=== PATIENT | male | born 2000 | race American Indian/Alaskan Native ===

== ENCOUNTER 2022-05-28 01:03 | Emergency (ER) | payer SELFPAY ==
[2022-05-28] MEDS ORDERED: SODIUM CHLORIDE 0.9% 1000 ML 1,000 ML IV ONE (02:05)
[2022-05-28 02:18] LABS: Basophils # (Auto) 0.1 K/mm3 (0.0-0.1); Basophils % (Auto) 0.8 % (0.0-1.8); Eosinophils # (Auto) 0.1 K/mm3 (0.0-0.4); Eosinophils % (Auto) 1.7 % (0.0-4.3); Hematocrit 44.7 % (35.5-45.6); Hemoglobin 14.2 gm/dl (11.8-15.2); Lymphocytes # (Auto) 1.1 K/mm3 (1.2-5.4); Lymphocytes % (Auto) 17.1 % (13.4-35.0); Mean Corpuscular HGB Conc 32 % (32-34); Mean Corpuscular Volume 91 fl (84-94); Monocytes # (Auto) 0.4 K/mm3 (0.0-0.8); Monocytes % (Auto) 5.3 % (0.0-7.3); Platelet Count 268 K/mm3 (140-440); Red Blood Count 4.95 M/mm3 (3.65-5.03); Red Cell Distribution Width 12.4 % (13.2-15.2)
--- NOTE | 2022-05-28 02:52 | XRay Report ---
XR chest 1V ap INDICATION / CLINICAL INFORMATION: Overdose. COMPARISON: None available. FINDINGS: SUPPORT DEVICES: None. HEART /PULMONARY VASCULATURE: No significant abnormality. LUNGS / PLEURA: No significant pulmonary or pleural abnormality. No pneumothorax. ADDITIONAL FINDINGS: No significant additional findings. IMPRESSION: 1. No acute findings. Signer Name: Teddy Gupta MD Signed: 05/28/2022 2:48 AM Workstation Name: [id number]
[2022-05-28 02:58] LABS: Alanine Aminotransferase 14 units/L (7-56); Albumin 4.3 g/dL (3.9-5); BUN/Creatinine Ratio 16; Blood Urea Nitrogen 14 mg/dL (9-20); Calcium 8.9 mg/dL (8.4-10.2); Hemolysis Index 6
[2022-05-28 03:07] LABS: INR 1.14 (0.87-1.13)
--- NOTE | 2022-05-28 03:50 | Emergency Department Report ---
<EDNASANDHYAJEN - Last Filed: 05/28/22 03:49> ED General Adult HPI - General Chief complaint: Overdose Stated complaint: MH PUI?: No Time Seen by Provider: 05/28/22 02:02 Source: EMS Mode of arrival: Stretcher Limitations: No Limitations - History of Present Illness Initial comments: t took ibuprofen 4000 mg, pt only answering questions by "yes" and "no" to EMS on scene EMS reports pt stating "I am going to fight everyone" the original call came in to dispatch at 1904 05/27/22, reason for deplayed transport is EMS was waiting on PD. Pt was not combative. No IV placed en route. Pt is responsive, sluggish, AOx2, -: Gradual, hour(s) (1) Associated Symptoms: denies: denies other symptoms, confusion, chest pain Treatments Prior to Arrival: none - Related Data Allergies Allergy/AdvReac Type Severity Reaction Status Date / Time No Known Allergies Allergy Unverified 05/28/22 01:42 ED Review of Systems Constitutional: denies: chills, fever Eyes: denies: eye pain, eye discharge, vision change ENT: denies: ear pain, throat pain Respiratory: denies: cough, shortness of breath, wheezing Cardiovascular: denies: chest pain, palpitations Endocrine: no symptoms reported Gastrointestinal: denies: abdominal pain, nausea, diarrhea Genitourinary: denies: urgency, dysuria Musculoskeletal: denies: back pain, joint swelling, arthralgia Skin: denies: rash, lesions Neurological: denies: headache, weakness, paresthesias Psychiatric: denies: anxiety, depression Hematological/Lymphatic: denies: easy bleeding, easy bruising ED Past Medical Hx - Past Medical History Previous Medical History?: No Hx Hypertension: No - Surgical History Past Surgical History?: No - Social History Smoking Status: Current Every Day Smoker Substance Use Type: Alcohol ED Physical Exam - General Limitations: No Limitations General appearance: alert, anxious - Head Head exam: Present: atraumatic, normocephalic - Eye Eye exam: Present: normal appearance - ENT ENT exam: Present: mucous membranes moist - Neck Neck exam: Present: normal inspection - Respiratory Respiratory exam: Present: normal lung sounds bilaterally. Absent: respiratory distress - Cardiovascular Cardiovascular Exam: Present: regular rate, normal rhythm. Absent: systolic m urmur, diastolic murmur, rubs, gallop - GI/Abdominal GI/Abdominal exam: Present: soft, normal bowel sounds - Rectal Rectal exam: Present: deferred - Extremities Exam Extremities exam: Present: normal inspection - Back Exam Back exam: Present: normal inspection - Neurological Exam Neurological exam: Present: alert, oriented X3 - Psychiatric Psychiatric exam: Present: depressed, anxious - Skin Skin exam: Present: warm, dry, intact, normal color. Absent: rash ED Medical Decision Making - Lab Data Result diagrams: 05/28/22 01:49 05/28/22 01:49 ED Disposition Clinical Impression: Suicide attempt Overdose Qualifiers: Encounter type: initial encounter Injury intent: intentional self-harm Qualified Code(s): T50.902A - Poisoning by unspecified drugs, medicaments and biological substances, intentional self-harm, initial encounter Disposition: 30 STILL A PATIENT Is pt being admited?: No Does the pt Need Aspirin: No Condition: Stable <ARNALDO LOMAX - Last Filed: 05/28/22 09:40> ED Review of Systems ROS: Stated complaint: MH Other details as noted in HPI ED Course Vital Signs 05/28/22 05/28/22 05/28/22 01:35 01:52 02:01 Temperature 98.7 F Pulse Rate 71 78 67 Respiratory 18 13 11 L Rate Blood Pressure 137/79 133/93 O2 Sat by Pulse 98 99 100 Oximetry 05/28/22 05/28/22 05/28/22 02:15 02:31 02:45 Temperature Pulse Rate 94 H 75 71 Respiratory 13 17 12 Rate Blood Pressure 133/93 133/93 127/91 O2 Sat by Pulse 99 100 99 Oximetry 05/28/22 05/28/22 05/28/22 03:01 03:15 03:31 Temperature Pulse Rate 84 71 66 Respiratory 17 19 18 Rate Blood Pressure 127/91 127/91 127/91 O2 Sat by Pulse 100 99 97 Oximetry 05/28/22 05/28/22 05/28/22 03:45 04:01 04:15 Temperature Pulse Rate 65 65 76 Respiratory 15 16 14 Rate Blood Pressure 106/56 106/56 106/56 O2 Sat by Pulse 97 97 99 Oximetry 05/28/22 05/28/22 05/28/22 04:25 04:31 04:45 Temperature Pulse Rate 61 64 Respiratory 21 15 Rate Blood Pressure 106/56 102/49 O2 Sat by Pulse 97 98 99 Oximetry 05/28/22 05/28/22 05/28/22 05:01 05:15 05:31 Temperature Pulse Rate 58 L 59 L 60 Respiratory 19 18 18 Rate Blood Pressure 102/49 102/49 102/49 O2 Sat by Pulse 98 98 97 Oximetry 05/28/22 05/28/22 05/28/22 05:45 06:01 06:15 Temperature Pulse Rate 56 L 66 62 Respiratory 17 20 16 Rate Blood Pressure 98/50 98/50 98/50 O2 Sat by Pulse 96 96 97 Oximetry 05/28/22 05/28/22 05/28/22 06:31 06:45 07:01 Temperature Pulse Rate 60 74 83 Respiratory 18 16 13 Rate Blood Pressure 98/50 93/50 93/50 O2 Sat by Pulse 98 99 97 Oximetry - Reevaluation(s) Reevaluation #1: 05/28/22 09:40 This is a 22-year-old male who is being evaluated for an overdose and suspected suicide attempt. Patient is medically cleared to be moved into the psychiatric area until he is evaluated by mental health. ED Medical Decision Making - Lab Data Result diagrams: 05/28/22 01:49 05/28/22 01:49 Critical care attestation.: If time is entered above; I have spent that time in minutes in the direct care of this critically ill patient, excluding procedure time.
[2022-05-28 07:22] LABS: Mucus,Urine FEW /HPF
[2022-05-28 07:24] LABS: Bilirubin,Urine Negative (Negative); Blood,Urine Negative (Negative); Color,Urine Straw (Yellow)
[2022-05-28 07:25] LABS: Protein,Urine <15 mg/dL mg/dL (Negative)
[2022-05-28 07:52] LABS: Amphetamine Screen,Urine Negative; Benzodiazepines Screen,Urine Negative; Cannabinoid Screen,Urine Negative; Cocaine Screen,Urine Negative; Methadone Screen,Urine Negative; Opiate Screen,Urine Negative
[2022-05-28] MEDS ORDERED: WATER FOR INJ Sterile (PF) 10 ML ONE (08:52)
[2022-05-28] MEDS ORDERED: ZIPRASIDONE MESYLATE 20 MG VIAL IM ONE (08:52)
[2022-05-28] MEDS ORDERED: diphenhydrAMINE 50 MG/ML VIAL ONE (08:53)
--- NOTE | 2022-05-28 10:30 | Consultation ---
History of Present Illness - Reason for Consult Consult date: 05/28/22 Reason for consult: OD - History of Present Psychiatric Illness The patient is a 22 year old male with no psychiatric history who presents to the ED post overdosing on Ibuprofen. The patient was seen today. he is calm, alert and oriented x3. The patient is easily irritable. He reports that he had a n incident at his mother home; states trigger such as ongoing issues with his mother. He states he consumed about 4-5 pills of Ibuprofen which he got from his sister. He is naive to psychotropic medications. He denies any current suicidal/homicidal ideation and denies hallucinations. Will recommend acute psychiatric inpatient for further evaluation and resources. 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) History of Abuse: Denies Legal History: Denies REVIEW OF SYSTEMS Constitutional: Negative for weight loss ENT: Negative for stridor Respiratory: Negative for cough or hemoptysis All other systems reviewed and are negative MENTAL STATUS EXAMINATION General Appearance and Behavior: Age appropriate, good hygiene, wearing appropriate clothes, good eye contact, calm, cooperative Cooperation: Participating/engaged, but Guarded Psychomotor Behavior: Psychomotor normal Mood: Depressed Affect and affective range: congruent with stated mood Thought Process: goal directed Thought Content: reality oriented Speech: Normal tone and pace Suicidal Ideation: Denies Homicidal Ideation: Denies Hallucinations: Denies Delusions: None elicited Impulse Control: Normal Insight and Judgment: Limited insight and judgment Memory: Limited Attention: divided Orientation: Alert, oriented Assessment and Plan Major depressive disorder Treatment Plan 1013 Continue home Meds Risks, benefits and alternatives of medications discussed with the patient, questions answered and consent obtained from patient. PSYCHOTHERAPY: Supportive psychotherapy provided MEDICAL: Per primary team DELIRIUM PRECAUTIONS: Please re-orient patient frequently, keep lights on during the day, and minimize benzodiazepines and opiates as these medications could worsen patient's confusion. RUBBERIZING MECHANIC: Defer to primary DISPOSITION: Recommend acute inpatient psychiatric hospitalization at this time. Will follow. Thank you for the consult. Please contact with any questions and/or concerns. Case staffed with Dr. Rodriguez Medications and Allergies Medications and Allergies Allergies Allergy/AdvReac Type Severity Reaction Status Date / Time No Known Allergies Allergy Unverified 05/28/22 01:42 Mental Status Exam - Vital signs Last Vital Signs Temp 98.7 F 05/28/22 01:35 Pulse 83 05/28/22 07:01 Resp 13 05/28/22 07:01 BP 93/50 05/28/22 07:01 Pulse Ox 97 05/28/22 07:01 Results Result Diagrams: 05/28/22 01:49 05/28/22 01:49 Abnormal lab results 05/28/22 05/28/22 05/28/22 Range/Units 01:49 01:49 01:49 RDW 12.4 L (13.2-15.2) % Lymph # (Auto) 1.1 L (1.2-5.4) K/mm3 Seg Neutrophils % 75.1 H (40.0-70.0) % PT (12.2-14.9) Sec. INR (0.87-1.13) Glucose (75-100) mg/dL Salicylates < 0.3 L (2.8-20.0) mg/dL Acetaminophen 5.0 L (10.0-30.0) ug/mL 05/28/22 05/28/22 Range/Units 01:49 02:22 RDW (13.2-15.2) % Lymph # (Auto) (1.2-5.4) K/mm3 Seg Neutrophils % (40.0-70.0) % PT 16.3 H (12.2-14.9) Sec. INR 1.14 H (0.87-1.13) Glucose 113 H (75-100) mg/dL Salicylates (2.8-20.0) mg/dL Acetaminophen (10.0-30.0) ug/mL All other labs normal.
[2022-05-29 09:00] VITALS: BP 148/97
--- NOTE | 2022-05-29 10:22 | Progress Note ---
Subjective - Reason for Consult Consult date: 05/29/22 Reason for consult: OD - Chief Complaint Chief complaint: The patient was seen today. The patient is calm and cooperative. He reports that his mood is good. The patient states," I am remorseful about my actions and thinking about suicide."The patient is a patient care nursing assistant and employed. He reports that he will be staying with his sister upon discharge. He also reports that the family will start therapy to deal with past childhood disappointments. The patient denies suicidal/homicidal ideation or audio visual hallucinations. Collateral information was obtained from the patient's sister, Sorin Allan. The sister has agreed to pick the patient up at discharge and confirmed the ongoing family issues. The sister also proves to be a protective factor for this patient. The patient will be discharged to psychiatric outpatient follow-up with safety plan completed today. REVIEW OF SYSTEMS Constitutional: Negative for weight loss ENT: Negative for stridor Respiratory: Negative for cough or hemoptysis All other systems reviewed and are negative MENTAL STATUS EXAMINATION General Appearance and Behavior: Age appropriate, good hygiene, wearing appropriate clothes, good eye contact, calm, cooperative Cooperation: Participating/engaged, but Guarded Psychomotor Behavior: Psychomotor normal Mood: "Okay" Affect and affective range: congruent with stated mood Thought Process: goal directed Thought Content: reality oriented Speech: Normal tone and pace Suicidal Ideation: Denies Homicidal Ideation: Denies Hallucinations: Denies Delusions: None elicited Impulse Control: Normal Insight and Judgment: Fair insight and judgment Memory: Normal Attention: Attentive Orientation: Alert, oriented Assessment and Plan Major depressive disorder Treatment Plan DC 1013 Continue home Meds Risks, benefits and alternatives of medications discussed with the patient, questions answered and consent obtained from patient. PSYCHOTHERAPY: Supportive psychotherapy provided MEDICAL: Per primary team DELIRIUM PRECAUTIONS: Please re-orient patient frequently, keep lights on during the day, and minimize benzodiazepines and opiates as these medications could worsen patient's confusion. PHARMACY SCHEDULER: Defer to primary DISPOSITION: Do no recommend acute inpatient psychiatric hospitalization at this time. Spring Inspector will provide patient with psychiatric resources and safety plan. Will Sign-off. Thank you for the consult. Please contact with any questions and/or concerns. Case staffed with Dr. Rodriguez Medications and Allergies Mental Status Exam - Vital signs Last Vital Signs Temp 98.4 F 05/29/22 09:00 Pulse 83 05/29/22 09:00 Resp 16 05/29/22 09:00 BP 148/97 05/29/22 09:00 Pulse Ox 98 05/29/22 09:00
--- NOTE | 2022-05-29 12:33 | Emergency Department Report ---
Blank Doc - Documentation Documentation: 22 yo male with h/o depression presented to the emergency department reporting that he had an overdose, but has been cleared by psychiatry, now, and will be discharged home. I reevaluated the patient at bedside, and he is not suicidal, homicidal, or hallucinating. Patient has a pleasant affect and appears remorseful. I have rescinded his 1013, and patient will be discharged home, now.
== END 2022-05-29 13:50 | disposition home or self-care (01) ==
LOC: ED 01:03 → EEVIPCON 01:03 → ED 05-29 13:50
DX: T39.312A Poisoning by propionic acid derivatives, intentional self-harm, initial encounter (principal); F17.200 Nicotine dependence, unspecified, uncomplicated; Z20.822 Contact with and (suspected) exposure to COVID-19; Y92.89 Other specified places as the place of occurrence of the external cause
CPT/HCPCS: 36415; 71045; 80053; 80307; 81001; 85025; 85610; 96360; 99285; J1200; J3486; U0003; 80320; G0480